=== PATIENT | female | born 1955 | race Caucasian/White ===

== ENCOUNTER 2017-06-04 01:22 | Emergency (ER) | payer MEDICAID ==
[~2017-06-04] VITALS: Ht 157.5 cm; Wt 55.0 kg
[~2017-06-04 01:22] MED LIST: AMLO10TA4 PO; ASPI-1159 PO; ESCI10TA54 PO; OMEP20CA10 PO; SIMV20TA6 PO
[2017-06-04 06:51] LABS: BASOPHILS % 0.7 % (0.0-2.0); EOSINOPHILS % 0.1 % (0.0-5.0); HEMATOCRIT. 40.2 % (36.0-48.0); HEMOGLOBIN. 13.6 g/dL (12.0-16.0); LYMPHOCYTES % 18.3 % (20.0-50.0); MEAN CORPUSCULAR HEMOGLOBIN 30.6 pg (28.0-32.0); MEAN CORPUSCULAR VOLUME 90.6 fL (81.0-99.0); MEAN PLATELET VOLUME 9.7 fl (7.4-10.4); NEUTROPHILS % 75.9 % (40.0-76.0); PLATELET 312 x1000/uL (130-400); RED BLOOD CELL COUNT 4.44 mill/uL (4.2-5.4); RED CELL DISTRIBUTION WIDTH 13.6 % (11.6-14.6)
[2017-06-04 06:58] LABS: PROTHROMBIN TIME 10.7 sec (9.4-11.6)
[2017-06-04 07:04] LABS: AMMONIA < 10 uMol/L (<32)
[2017-06-04 07:08] LABS: CARBON DIOXIDE 29 mEq/L (21-32); CHLORIDE 102 mEq/L (98-107); ETHANOL BLOOD < 10 mg/dL; TROPONIN I < 0.02 ng/mL (0.00-0.04)
[2017-06-04 08:28] VITALS: BP 128/76
== END 2017-06-04 08:42 | disposition home or self-care (01) ==
LOC: ER 01:22
DX: F41.0 Panic disorder [episodic paroxysmal anxiety] (principal); Z79.82 Long term (current) use of aspirin
CPT/HCPCS: 36415; 71045; 80053; 80307; 80329; 82140; 83880; 84443; 84484; 85025; 85610; 93005; 99285; G0482; Z7610